=== PATIENT | female | born 1980 | race Caucasian/White ===

== ENCOUNTER 2020-07-01 06:42 | Day surgery (SDC) | payer BC ==
[2020-07-01 08:30] VITALS: BP 126/80; PULSE 60; TEMP 97.6
--- NOTE | 2020-07-01 08:30 | NUR ---
PATIENT TO RECOVERY BAY 1 POST PROCEDURE VIA CART WITH RN NEETU. PATIENT REMAINS ON CART ON RIGHT SIDE. REPORT FROM PDAINDER RN. INCOMPLETE COLONOSCOPY. 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 VITAL SIGNS DONE. GIVEN WARM BLANKETS. DR AT BEDSIDE TO SPEAK WITH PATIENT.
[2020-07-01 08:45] VITALS: BP 140/77; PULSE 55
[2020-07-01 09:00] VITALS: BP 126/65; PULSE 58
--- NOTE | 2020-07-01 09:00 | NUR ---
PATIENT TAKEN OFF UNIT FOR BARIUM ENEMA VIA WHEELCHAIR WITH ANALYTICS SPECIALIST.
[2020-07-01 10:00] VITALS: BP 140/85; PULSE 69
--- NOTE | 2020-07-01 10:00 | NUR ---
PATIENT RETURNS FROM RADIOLOGY VIA WHEELCHAIR. AMBULATES TO CHAIR WITHOUT DIFFICULTY. VITAL SIGNS DONE.
--- NOTE | 2020-07-01 10:10 | NUR ---
IV SITE DISCONTINUED FROM RIGHT HAND. DISMISSAL INSTRUCTIONS GIVEN. HARD COPIES ACKNOWLEDGED AND VERBAL EXPLANATION GIVEN. PATIENT DENIES QUESTIONS AND GIVES VERBAL UNDERSTANDING.
--- NOTE | 2020-07-01 10:22 | NUR ---
PATIENT ESCORTED OFF UNIT TO WAITING CONSUMER EDUCATION SPECIALIST FOR DISMISSAL VIA WHEELCHAIR WITH RN TARAN.
== END 2020-07-01 10:22 | disposition home or self-care (01) ==
LOC: SDCO 06:42
DX: Z12.11 Encounter for screening for malignant neoplasm of colon (principal); K56.609 Unspecified intestinal obstruction, unspecified as to partial versus complete obstruction; Z80.0 Family history of malignant neoplasm of digestive organs; K58.9 Irritable bowel syndrome, unspecified; E55.9 Vitamin D deficiency, unspecified; Z20.822 Contact with and (suspected) exposure to COVID-19
CPT/HCPCS: J2704; J3010

== ENCOUNTER → 2020-07-05 | Outpatient (CLI) | payer BC | END | disposition still patient (30) | LOC: COL.RAD 07-01 09:00 | DX: Z53.9 Procedure and treatment not carried out, unspecified reason (principal) ==